=== PATIENT | female | born 1965 | race American Indian/Alaskan Native ===

== ENCOUNTER 2016-06-02 21:03 | Emergency (ER) | payer SELFPAY ==
[2016-06-02 22:09] LABS: Bilirubin,Urine NEG (Negative); Blood,Urine NEG (Negative); Ketones,Urine NEG (Negative); Leukocyte Esterase,Urine NEG (Negative); Nitrite,Urine NEG (Negative); Protein,Urine <15 mg/dL mg/dL (Negative); Urobilinogen,Urine < 2.0 mg/dL (<2.0)
[2016-06-02] MEDS ORDERED: MORPHINE IV ONE (23:50)
--- NOTE | 2016-06-02 23:56 | Emergency Department Report ---
HPI - General Chief Complaint: Abdominal Pain Time Seen by Provider: 06/02/16 23:35 - HPI HPI: This is a 51-year-old -[place] female who presents to the emergency department from home with complaint of a one-week history of right-sided flank pain. The pain started off intermittent but over the past 24 hours it has become constant and more intense. She denies any nausea, vomiting, fever, back pain, vaginal bleeding or discharge. She also denies any dysuria but urinating does make the pain worse. No recent travel or sick contacts at home. She tried some IV provided for discomfort with some relief. She does not have a primary care doctor. No significant past medical history. She has a history of a tubal ligation. ED Past Medical Hx - Past Medical History Previous Medical History?: No - Surgical History Past Surgical History?: Yes Additional Surgical History: tubal ligation 1992 - Social History Smoking Status: Never Smoker Substance Use Type: Alcohol ED Review of Systems ROS: Stated complaint: SIDE PAIN/PAINFUL URINATION Other details as noted in HPI Comment: All other systems reviewed and negative Constitutional: denies: chills, fever Eyes: denies: eye pain, eye discharge, vision change ENT: denies: ear pain, throat pain Respiratory: denies: cough, shortness of breath, wheezing Cardiovascular: denies: chest pain, palpitations Gastrointestinal: abdominal pain (right flank). denies: nausea, vomiting Genitourinary: denies: urgency, discharge Musculoskeletal: denies: back pain, joint swelling, arthralgia Skin: denies: rash, lesions Neurological: denies: headache, weakness, paresthesias Physical Exam - Physical Exam Vital Signs: Vital Signs 06/02/16 21:21 Temperature 98.5 F Pulse Rate 71 Respiratory 20 Rate Blood Pressure 155/102 Blood Pressure 155/102 [Left] O2 Sat by Pulse 100 Oximetry Physical Exam: GENERAL: The patient is well-developed well-nourished. HEENT: Normocephalic. Atraumatic. Extraocular motions are intact. Patient has moist mucous membranes. Pupils equal reactive to light bilaterally. NECK: Supple. Trachea is midline. CHEST/LUNGS: Clear to auscultation. There is no respiratory distress noted. HEART/CARDIOVASCULAR: Regular. There is no tachycardia. There is no gallop rub or murmur. ABDOMEN: Abdomen is soft, nontender. Patient's right flank pain is not reproducible to palpation. No guarding or rebound tenderness. Patient has normal bowel sounds. There is no abdominal distention. SKIN: Trachea is midline. NEURO: The patient is awake, alert, and oriented. The patient is cooperative. The patient has no focal neurologic deficits. The patient has normal speech. MUSCULOSKELETAL: There is no tenderness or deformity. There is no limitation range of motion. There is no evidence of acute injury. ED Course Vital Signs 06/02/16 21:21 Temperature 98.5 F Pulse Rate 71 Respiratory 20 Rate Blood Pressure 155/102 Blood Pressure 155/102 [Left] O2 Sat by Pulse 100 Oximetry ED Medical Decision Making - Lab Data Result diagrams: 06/03/16 00:07 06/03/16 00:07 - Radiology Data Radiology results: report reviewed CT of the abdomen and pelvis with contrast shows no kidney stones or hydronephrosis. There is no bowel obstruction colitis or enteritis. The appendix is normal. Uterus is enlarged. There is a 1 cm calcified fibroid and left side of the fundus. There is no ascites, free air, abscess or adenopathy. - Medical Decision Making 51-year-old female presents to the emergency department with Piyush worsening right-sided flank pain. Patient's labs are unremarkable including no signs of urinary tract infection, hematuria. There is no leukocytosis, renal insufficiency or electrolyte abnormalities. Patient did not want anything stronger than Tylenol for pain. A CT of the abdomen and pelvis was going to be done with IV contrast but the patient did not want any contrast administered so it was done without contrast. The CT resulted as a small 1 cm left-sided calcified fibroid otherwise no acute process. I do not believe that this is the source of the patient's pain. I'm not sure at this time what exactly is causing her discomfort but it does not appear to be anything that is of emergent nature. Patient will be discharged home to follow up with a primary care clinic. She will return to the ER with any worsening of her symptoms or any acute distress. - Differential Diagnosis cholecystitis, pancreatitis, hepatitis, nephrolithiasis, hydronephrosis, co Critical Care Time: No Critical care attestation.: If time is entered above; I have spent that time in minutes in the direct care of this critically ill patient, excluding procedure time. ED Disposition Clinical Impression: Flank pain Disposition: DISCHARGED TO HOME OR SELFCARE Is pt being admited?: No Condition: Good Instructions: Flank Pain (ED) Additional Instructions: Please follow-up with a primary care clinic in the next few days if possible. Return to the emergency department with any worsening of your symptoms or any acute distress. Referrals: PRIMARY CARE,MD [Primary Care Provider] - 3-5 Days [facility] [Outside] - 3-5 Days [facility] [Outside] - 3-5 Days [facility] [Outside] - 3-5 Days Time of Disposition: 02:03
[2016-06-03 00:30] LABS: Basophils % (Auto) 0.3 % (0.0-1.8); Eosinophils % (Auto) 2.2 % (0.0-4.3); Hematocrit 37.7 % (30.3-42.9); Hemoglobin 11.9 gm/dl (10.1-14.3); Mean Corpuscular HGB Conc 32 % (30-34); Mean Corpuscular Volume 75 fl (79-97); Platelet Count 217 K/mm3 (140-440); Red Blood Count 5.03 M/mm3 (3.65-5.03); Red Cell Distribution Width 14.9 % (13.2-15.2); White Blood Count 6.9 K/mm3 (4.5-11.0)
[2016-06-03 00:31] LABS: Mean Corpuscular Hemoglobin 24 pg (28-32)
[2016-06-03 00:46] LABS: Alanine Aminotransferase 16 units/L (7-56); Albumin 4.1 g/dL (3.9-5); Albumin/Globulin Ratio 1.3 %; Alkaline Phosphatase 61 units/L (35-129); BUN/Creatinine Ratio 23.33; Bilirubin,Total 0.2 mg/dL (0.1-1.2); Blood Urea Nitrogen 14 mg/dL (7-17); Calcium 9.3 mg/dL (8.4-10.2); Carbon Dioxide 29 mmol/L (22-30); Glucose 108 mg/dL (65-100); Lipase 23 units/L (13-60); Total Protein 7.3 g/dL (6.3-8.2)
[2016-06-03 00:47] LABS: Anion Gap 14 mmol/L; Chloride 102.3 mmol/L (98-107); Potassium 4.1 mmol/L (3.6-5.0); Sodium 141 mmol/L (137-145)
[2016-06-03] MEDS ORDERED: TORADOL IV ONE (00:49)
[2016-06-03] MEDS ORDERED: NACL ONE (00:50)
[2016-06-03] MEDS ORDERED: TYLENOL PO ONE (00:55)
--- NOTE | 2016-06-03 01:54 | Cat Scan Report ---
FINAL REPORT PROCEDURE: CT ABDOMEN PELVIS WO CON TECHNIQUE: Computerized axial tomography of the abdomen and pelvis was performed without intravenous contrast. This study is performed without intravascular contrast material and its sensitivity for abdominal and pelvic pathology, including neoplasms, inflammation, abscess, free fluid, thrombosis, arterial dissection and infarction, is reduced compared with a contrast enhanced study. HISTORY: Abd pain COMPARISON: No prior studies are available for comparison. FINDINGS: Visualized lower thorax: No significant abnormality. Liver: Normal size and attenuation. Spleen: Normal size and attenuation. Gallbladder and biliary system: Normal. Pancreas: Normal. Adrenals: Normal. Kidneys: There are no kidney stones. There is no hydronephrosis.. GI tract: There is no bowel obstruction, colitis or enteritis. The appendix is normal. The. Lymph nodes and mesentery: Normal. Vasculature: Normal. Bladder: Uterus is enlarged. There is a 1 centimeter calcified fibroid in the left side of the fundus.. Reproductive organs: Normal. Peritoneum: There is no ascites, free air, abscess or adenopathy.. Musculoskeletal structures: No significant abnormality. Other: None. IMPRESSION: There are no kidney stones. There is no hydronephrosis.. There is no bowel obstruction, colitis or enteritis. The appendix is normal. Uterus is enlarged. There is a 1 centimeter calcified fibroid in the left side of the fundus.. There is no ascites, free air, abscess or adenopathy.. .
[2016-06-03 02:34] VITALS: BP 129/78
== END 2016-06-03 02:31 | disposition home or self-care (01) ==
LOC: ED 21:03
DX: R10.9 Unspecified abdominal pain (principal); Z98.51 Tubal ligation status
CPT/HCPCS: 36415; 74176; 80053; 81001; 81025; 83690; 85025; J2270

== ENCOUNTER 2016-09-20 00:45 | Emergency (ER) | payer SELFPAY ==
--- NOTE | 2016-09-20 07:45 | Emergency Department Report ---
ED Rash HPI - HPI Chief Complaint: Skin Rash Stated Complaint: FULL BODY RASH Time Seen by Provider: 09/20/16 07:12 Duration: 5 Days Location: Neck, Back, Upper Extremities, Lower Extremities Suspected Cause: Unknown Rash Symptoms: Yes Itching, No Facial Swelling, No Tongue/Oral Swelling, No Breathing Difficulties, No Choking Sensation, No Wheezing/Dyspnea, No Peeling, No Blistering, No Fever, No Lightheaded, No Malaise, No Myalgias Severity: moderate ED Review of Systems ROS: Stated complaint: FULL BODY RASH Other details as noted in HPI Constitutional: denies: chills, fever Eyes: denies: eye pain, eye discharge, vision change ENT: denies: ear pain, throat pain Respiratory: denies: cough, shortness of breath, wheezing Cardiovascular: denies: chest pain, palpitations Endocrine: no symptoms reported Gastrointestinal: denies: abdominal pain, nausea, diarrhea Genitourinary: denies: urgency, dysuria, discharge Musculoskeletal: denies: back pain, joint swelling, arthralgia Skin: rash. denies: change in color, change in hair/nails, pruritus, other Neurological: denies: headache, weakness, paresthesias Psychiatric: denies: anxiety, depression Hematological/Lymphatic: denies: easy bleeding, easy bruising ED Past Medical Hx - Past Medical History Previous Medical History?: No - Surgical History Past Surgical History?: Yes Additional Surgical History: tubal ligation 1992 - Social History Smoking Status: Never Smoker Substance Use Type: None - Medications Home Medications: Home Medications Medication Instructions Recorded Confirmed Last Taken Type Triamcinolone 0.1% [Kenalog 0.1% 1 applic TP TID #1 tube 09/20/16 Unknown Rx CREAM] hydrOXYzine HCL [Atarax] 25 mg PO Q6HR PRN #30 tablet 09/20/16 Unknown Rx Rash Exam - Exam General: Vital signs noted. No distress. Alert and acting appropriately. HEENT: No Periorbital Edema, No Conjuctival Injection, No Chemosis, No Perioral Edema, No Tongue Edema, No Uvular Edema, No Compromised Airway, No Drooling Lungs: Yes Good Air Exchange, No Wheezes, No Ronchi, No Stridor, No Cough, No Labored Respirations, No Retractions, No Use of Accessory Muscles, No Other Abnormal Lung Sounds Heart: Yes Regular, No Murmur Skin: Yes Urticarial Rash, Yes Maculopapular Rash, Yes Erythema, No Morbilliform rash, No Bulla(e), No Excoriations, No Weeping, No Tenderness, No Edema, No Encrustations Other: Positive: Abdomen Normal, Neurologic Normal, Musculoskeletal Normal ED Course Vital Signs 09/20/16 01:30 Temperature 98.1 F Pulse Rate 80 Respiratory 20 Rate Blood Pressure 156/97 O2 Sat by Pulse 100 Oximetry ED Medical Decision Making - Medical Decision Making pt is a 51 y/o aaf who presents for rash papular erythema itching x 5 days after going outside in back yard, there is no fever no chills, likey contact versus allergic dermatitis will tx triamcinolone oint and atarax for itching prn pt will follwo up with primary care doctor as directed pt verbalized agreement and understanding of discharge plan. Critical care attestation.: If time is entered above; I have spent that time in minutes in the direct care of this critically ill patient, excluding procedure time. ED Disposition Clinical Impression: Contact dermatitis Qualifiers: Contact dermatitis type: allergic Contact dermatitis trigger: unspecified trigger Qualified Code(s): L23.9 - Allergic contact dermatitis, unspecified cause Disposition: - TO HOME OR SELFCARE Is pt being admited?: No Does the pt Need Aspirin: No Condition: Good Instructions: Contact Dermatitis (ED) Prescriptions: hydrOXYzine HCL [Atarax] 25 mg PO Q6HR PRN #30 tablet PRN Reason: Itching Triamcinolone 0.1% [Kenalog 0.1% CREAM] 1 applic TP TID #1 tube Referrals: PRIMARY CARE, [Primary Care Provider] - 3-5 Days Forms: Work/School Release Form(ED) Time of Disposition: 07:48
[2016-09-20 08:08] VITALS: BP 150/91
== END 2016-09-20 08:07 | disposition home or self-care (01) ==
LOC: ED 00:45
DX: L23.9 Allergic contact dermatitis, unspecified cause (principal); Z98.51 Tubal ligation status
CPT/HCPCS: 99282

== ENCOUNTER 2016-12-15 03:10 | Emergency (ER) | payer SELFPAY ==
[2016-12-15] MEDS ORDERED: CATAPRES PO ONE (03:49)
[2016-12-15] MEDS ORDERED: CATAPRES ONE (03:54)
--- NOTE | 2016-12-15 04:24 | Emergency Department Report ---
ED Headache HPI - General Chief Complaint: Headache Stated Complaint: HEADACHE Time Seen by Provider: 12/15/16 04:12 Source: patient - History of Present Illness Initial Comments: 51 years old female history of hypertension brought by EMS with headache stated that with cough from a sleep, described her headache as occipital, denied any nausea or vomiting no neck stiffness no fever no chest pain or shortness of breath. Patient initial blood pressure was 200/104 Timing/Duration: 1 hour Quality: moderate Head Injury Location: occipital Recent Head Trauma: no recent headache/trauma Associated Symptoms: denies symptoms. denies: confusion, fatigue, facial pain, loss of consciousness, nausea/vomiting, nasal congestion, nasal drainage, seizures, sinus infection, stiff neck, vision changes, weakness Allergies/Adverse Reactions: Allergies No Known Allergies Allergy (Verified 06/02/16 21:20) Home Medications: Ambulatory Orders Triamcinolone 0.1% [Kenalog 0.1% CREAM] 1 applic TP TID #1 tube 09/20/16 hydrOXYzine HCL [Atarax] 25 mg PO Q6HR PRN #30 tablet 09/20/16 ED Review of Systems ROS: Stated complaint: HEADACHE Other details as noted in HPI Comment: All other systems reviewed and negative Constitutional: denies: chills, fever Respiratory: denies: cough, orthopnea, shortness of breath Cardiovascular: denies: chest pain, palpitations Gastrointestinal: denies: abdominal pain, nausea, vomiting, diarrhea Genitourinary: denies: urgency, frequency Musculoskeletal: denies: back pain Neurological: headache. denies: weakness, numbness, paresthesias, confusion, abnormal gait, vertigo ED Past Medical Hx - Past Medical History Previous Medical History?: Yes Hx Hypertension: Yes - Surgical History Past Surgical History?: Yes Additional Surgical History: tubal ligation 1992 - Social History Smoking Status: Never Smoker Substance Use Type: Alcohol - Medications Home Medications: Home Medications Medication Instructions Recorded Confirmed Last Taken Type Triamcinolone 0.1% [Kenalog 0.1% 1 applic TP TID #1 tube 09/20/16 Unknown Rx CREAM] hydrOXYzine HCL [Atarax] 25 mg PO Q6HR PRN #30 tablet 09/20/16 Unknown Rx ED Physical Exam - General Limitations: No Limitations General appearance: alert, in no apparent distress - Head Head exam: Present: atraumatic, normocephalic, normal inspection - Eye Eye exam: Present: normal appearance, PERRL Pupils: Present: normal accommodation - ENT ENT exam: Present: normal exam - Neck Neck exam: Present: normal inspection, tenderness, full ROM. Absent: meningismus, lymphadenopathy, thyromegaly - Respiratory Respiratory exam: Present: normal lung sounds bilaterally. Absent: respiratory distress, wheezes, rales, rhonchi, decreased breath sounds, prolonged expiratory - Cardiovascular Cardiovascular Exam: Present: regular rate, normal rhythm, normal heart sounds - GI/Abdominal GI/Abdominal exam: Present: soft. Absent: distended, tenderness, guarding, rebound, rigid, mass, bruit, pulsatile mass, hernia - Extremities Exam Extremities exam: Present: normal inspection. Absent: full ROM, tenderness, normal capillary refill, pedal edema - Back Exam Back exam: Absent: CVA tenderness (R), CVA tenderness (L) - Neurological Exam Neurological exam: Present: alert, oriented X3, CN II-XII intact, normal gait. Absent: motor sensory deficit - Skin Skin exam: Present: warm, intact ED Course Vital Signs 12/15/16 12/15/16 12/15/16 03:33 03:37 03:40 Temperature 98.7 F 98.7 F Pulse Rate 69 Respiratory 19 17 Rate Blood Pressure Blood Pressure 179/89 [Right] O2 Sat by Pulse 100 Oximetry 12/15/16 12/15/16 12/15/16 03:45 04:00 04:15 Temperature Pulse Rate 69 64 74 Respiratory 15 14 13 Rate Blood Pressure 179/89 154/82 154/82 Blood Pressure [Right] O2 Sat by Pulse 100 100 100 Oximetry 12/15/16 12/15/16 12/15/16 04:30 04:47 05:01 Temperature Pulse Rate Respiratory Rate Blood Pressure 131/82 171/81 156/78 Blood Pressure [Right] O2 Sat by Pulse 100 99 Oximetry 12/15/16 05:30 Temperature Pulse Rate Respiratory Rate Blood Pressure 133/78 Blood Pressure [Right] O2 Sat by Pulse 99 Oximetry - Reevaluation(s) Reevaluation #1: 12/15/16 05:51 Patient stated that she feel better, headache is gone, blood pressure now is 180 /62. ED Medical Decision Making - EKG Data -: EKG Interpreted by Pr EKG shows normal: sinus rhythm Rate: bradycardia - EKG Data Interpretation: no acute changes - Radiology Data Radiology results: report reviewed CT brain negative for acute abnormality - Medical Decision Making Patient daughter stated that her mother is panicky and she think this is contributing to her labile high blood pressure CT scan came back negative advised patient to keep a blood pressure log and take it to primary care physician for adjustment of her blood pressure. Critical care attestation.: If time is entered above; I have spent that time in minutes in the direct care of this critically ill patient, excluding procedure time. ED Disposition Clinical Impression: Headache, Hypertension Disposition: DC-01 TO HOME OR SELFCARE Is pt being admited?: No Condition: Stable Instructions: Hypertension (ED), Acute Headache (ED) Referrals: PRIMARY CARE, [Primary Care Provider] - 3-5 Days
--- NOTE | 2016-12-15 05:36 | Cat Scan Report ---
FINAL REPORT EXAM: CT HEAD/BRAIN WO CON HISTORY: headache, high BP TECHNIQUE: CT imaging acquired through the head without intravenous contrast. Transaxial reformations are provided. PRIORS: None. FINDINGS: The ventricles, cisterns and sulci are normal. No intraparenchymal or extra-axial mass, hemorrhage, or mass effect. Esquivel and white-matter differentiation is within normal limits. Normal spherical shape of the globes. Partially visualized paranasal sinuses and mastoid air cells are clear. No skull or facial fracture visualized. IMPRESSION: No acute intracranial abnormality.
[2016-12-15 05:48] VITALS: BP 133/78
== END 2016-12-15 07:39 | disposition home or self-care (01) ==
LOC: ED 03:10
DX: I10 Essential (primary) hypertension (principal)
CPT/HCPCS: 70450; 93005; 93010; 99283